=== PATIENT | male | born 1955 | race Caucasian/White ===

== ENCOUNTER 2023-01-14 09:05 | Day surgery (SDC) | payer MEDICARE ==
[~2023-01-14] VITALS: Ht 170.2 cm; Wt 63.0 kg
[~2023-01-14 09:05] MED LIST: AMLO1TAB25 PO; LIDOCAINE 2% 100MG/5ML SDV (FOR ANES.) As Ordered ONE; ONDANSETRON 4MG 2ML VIAL As Ordered ONE; ROCURONIUM BROMIDE 50MG/5ML VIAL As Ordered ONE; SUGAMMADEX SODIUM 500 MG/5 ML VIAL (BRIDION) As Ordered ONE; propofoL 200 MG/20 ML VIAL As Ordered ONE
[2023-01-14] MEDS ORDERED: fentaNYL 100 MCG/2 ML INJECTION As Ordered ONE (09:10)
[2023-01-14] MEDS ORDERED: MIDAZOLAM INJ 2MG/2ML VIAL As Ordered ONE (09:10)
[2023-01-14] MEDS ORDERED: LR 1,000 ML IV SCH ×2 (09:25→10:40)
[2023-01-14] MEDS ORDERED: CETACAINE SPRAY 5GM As Ordered ONE (09:43)
[2023-01-14] MEDS ORDERED: EPINEPHrine 1MG/10ML SYRINGE 1.5IN As Ordered ONE (09:43)
[2023-01-14] MEDS ORDERED: PHENYLephrine 500MCG 5ML (100MCG/ML) SYRINGE As Ordered ONE (10:03)
[2023-01-14] MEDS ORDERED: ACETAMINOPHEN 1000MG 100ML IV BAG As Ordered ONE (10:03)
[2023-01-14] MEDS ORDERED: ONDANSETRON 4MG 2ML VIAL IV PRN (10:40)
[2023-01-14] MEDS ORDERED: fentaNYL 100 MCG/2 ML INJECTION IV PRN (10:40)
[2023-01-14] MEDS ORDERED: METOCLOPRAMIDE INJ 10MG/2ML VIAL IV PRN (10:40)
[2023-01-14] MEDS ORDERED: oxyCODONE 5MG TAB PO PRN (10:40)
[2023-01-14] MEDS: THROMBIN 5,000 UNITS VIAL As Ordered ONE ×2 (10:56→10:58)
[2023-01-14 11:24] VITALS: BP 159/75; TEMP 97.5; O2SAT 95
== END 2023-01-14 11:48 | disposition home or self-care (01) ==
LOC: M SDC 09:05
PROVIDERS: ATTEND Internal Medicine Pulmonary Disease
DX: R59.0 Localized enlarged lymph nodes (principal); R91.8 Other nonspecific abnormal finding of lung field; J44.9 Chronic obstructive pulmonary disease, unspecified; C34.12 Malignant neoplasm of upper lobe, left bronchus or lung; I10 Essential (primary) hypertension; Z87.891 Personal history of nicotine dependence; Z79.899 Other long term (current) drug therapy
CPT/HCPCS: 31629; 31654; 71045; 88173; 88305; J0131; J1100; J2250; J2371; J2405; J3010